=== PATIENT | male | born 1985 | race Caucasian/White ===

== ENCOUNTER 2019-03-12 23:09 | Emergency (ER) | payer OTHER ==
[2019-03-12 23:16] VITALS: BP 108/65; PULSE 86; TEMP 98.1; BMI 24.4
[2019-03-13] MEDS ORDERED: LIDOCAINE 1%/EPI 1:100000 (20 ML MULTI DOSE VIAL) ONE (00:07)
[2019-03-13] MEDS ORDERED: LIDOCAINE 2%/EPINEPHRINE 1:100000 (50 ML MD VIAL) INF ONE (00:11)
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
--- NOTE | 2019-03-13 01:16 | PDOC ---
History of Present Illness - General Chief Complaint: Laceration Stated Complaint: LACERATION Time Seen by Provider: 03/12/19 23:32 History Source: Patient, Friend Past History - Past Medical History Allergies/Adverse Reactions: Allergies Allergy/AdvReac Type Severity Reaction Status Date / Time No Known Allergies Allergy Verified 03/12/19 23:14 Home Medications: Ambulatory Orders NK [No Known Home Medication] 03/12/19 - Psycho Social/Smoking Cessation Hx Smoking History: Never smoked Have you smoked in the past 12 months: No Information on smoking cessation initiated: No Hx Alcohol Use: No Drug/Substance Use Hx: No *Physical Exam - Vital Signs Last Vital Signs Temp Pulse Resp BP Pulse Ox 98.1 F 86 20 108/65 99 03/12/19 23:14 03/12/19 23:14 03/12/19 23:14 03/12/19 23:14 03/12/19 23:14 ED Treatment Course - Medications Given in the ED: ED Medications Discontinued Medications Generic Name Dose Route Start Last Admin Trade Name Lyudmila PRN Reason Stop Dose Admin Lidocaine/Epinephrine 5 ml 03/13/19 00:11 03/13/19 00:38 Xylocaine 2%-Epi 1:100,000 INF 03/13/19 00:12 5 ml ONCE ONE Administration Discharge - Discharge Information Problems reviewed: Yes Clinical Impression/Diagnosis: Laceration Condition: Stable Disposition: HOME - Admission No - Follow up/Referral - Patient Discharge Instructions Patient Printed Discharge Instructions: DI for Laceration Repair, DI for Suture Removal Additional Instructions: You were seen in the ER for a laceration. We cleaned out the injury and closed the site with 10 sutures. Please keep the site dry for the next 24 hours. Please return in 5 days to have the stitches removed - they will not dissolve on their own. If you cannot return here then the stitches can be removed at an urgent care. Please return to the ER if you develop high fevers, if the wound edges become raised and red, or if the wound begins to leak pus. - Post Discharge Activity
== END 2019-03-13 01:24 | disposition home or self-care (01) ==
LOC: JER 23:09
PROC: 0HQ1XZZ Repair Face Skin, External Approach (ICD-10-PCS; principal; 2019-03-12)
DX: S01.81XA Laceration without foreign body of other part of head, initial encounter (principal); W51.XXXA Accidental striking against or bumped into by another person, initial encounter; Y93.75 Activity, martial arts; Y92.39 Other specified sports and athletic area as the place of occurrence of the external cause; Y99.8 Other external cause status
CPT/HCPCS: 99282-25